=== PATIENT | female | born 1970 | race Two or more races ===

== ENCOUNTER 2016-12-17 22:30 | Emergency (ER) | payer OTHER ==
[2016-12-17] MEDS ORDERED: TDAP ADULT 0.5 ML INJ (BOOSTRIX) IM ONE (22:53)
[2016-12-17 23:00] VITALS: RESP 16
[2016-12-17] MEDS ORDERED: IBUPROFEN 600 MG TAB PO ONE (23:14)
[2016-12-17] MEDS ORDERED: ACETAMINOPHEN 500 MG TAB PO ONE (23:14)
[2016-12-18] MEDS ORDERED: SKIN ADHESIVE (DERMABOND) 1 EACH TP ONE (00:12)
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
[2016-12-18 00:57] VITALS: BP 134/88; PULSE 81; TEMP 98.4; O2SAT 97
== END 2016-12-18 00:57 | disposition home or self-care (01) ==
LOC: CED 22:30
PROC: 0HQ1XZZ Repair Face Skin, External Approach (ICD-10-PCS; principal; 2016-12-17)
DX: S01.81XA Laceration without foreign body of other part of head, initial encounter (principal); S40.211A Abrasion of right shoulder, initial encounter; S80.212A Abrasion, left knee, initial encounter; V18.0XXA Pedal cycle driver injured in noncollision transport accident in nontraffic accident, initial encounter; J02.9 Acute pharyngitis, unspecified; Y99.8 Other external cause status; J45.909 Unspecified asthma, uncomplicated; Y93.55 Activity, bike riding; Z23 Encounter for immunization
CPT/HCPCS: 70486-PO